=== PATIENT | female | born 1950 | race Caucasian/White ===

== ENCOUNTER → 2016-10-07 | Outpatient (REF) | payer MEDICARE, BC ==
[~2016-10-07] MED LIST: ALBU17IN INH; ALLO10TA PO; ANAS1TAB PO; CRAN500C2 PO; FLON1SPR; FOLI1TAB2 PO; MAG400TA PO; MAXZTA PO; MEGA1CAP3 PO; MIRA33504 PO; PHILCAP4 PO
[2016-10-07 22:03] LABS: CARCINOEMBRYONIC ANTIGEN 13.9 NG/ML (<2.5)
== END ==
LOC: M LAB REF 16:58
PROVIDERS: ATTEND Internal Medicine Medical Oncology
DX: C50.919 Malignant neoplasm of unspecified site of unspecified female breast (principal)

== ENCOUNTER → 2016-10-14 | Outpatient (REF) | payer MEDICARE, BC | LOC: M LAB REF 12:54 | PROVIDERS: ATTEND Internal Medicine Medical Oncology | DX: C50.919 Malignant neoplasm of unspecified site of unspecified female breast (principal) ==

== ENCOUNTER → 2016-11-04 | Outpatient (REF) | payer MEDICARE, BC ==
[2016-11-04 20:36] LABS: INR 0.94
== END ==
LOC: M LAB REF 16:36
PROVIDERS: ATTEND Internal Medicine Medical Oncology
DX: C50.919 Malignant neoplasm of unspecified site of unspecified female breast (principal)

== ENCOUNTER → 2016-11-06 | Outpatient (CLI) | payer MEDICARE, BC ==
[~2016-11-06] MED LIST changes: +LIDOCAINE W/EPINEPHRINE 1% 20ML VIAL As Ordered ONE; +SODIUM BICARBONATE 8.4% INJ 50MEQ 50 ML VIAL As Ordered ONE; +ceFAZolin 1GM INJ (J0690) As Ordered ONE; +fentaNYL 100 MCG/2 ML INJECTION (J3010) As Ordered ONE
--- NOTE | 2016-11-06 16:10 | REPKIM ---
CLINICAL HISTORY: Left breast ca with mets. The referring service has asked a chest [id number] placement for chemotherapy. PROCEDURE PERFORMED: Placement of totally implantable venous access device under combined sonographic and fluoroscopic guidance INTERVENTIONALIST: Caryn Bingham MD CONSENT: The risks, benefits and alternatives to the procedure were explained to the patient and informed written consent was obtained. MEDICATIONS: Local Lidocaine, Ancef 1gm IV and Fentanyl 25 mcg IV. Independent trained observer was present during the entire duration IV medications for monitoring. EBL: 5 mL FLUORO TIME: 0.5 minutes DEVICE USED: [place] 8-[place], Single-Lumen Lot#[id number] PROCEDURE/FINDINGS: The patient was brought to the interventional radiology suite and was positioned supine on the table. Time out procedure was performed. Real time ultrasound was used and permanent image stored. The right IJ vein is patent and compressible. Using ultrasound guidance the internal jugular vein was accessed with a micropuncture needle, after infiltration of the skin and deep tissues with local anesthetic. A peel-away sheath was placed. The catheter tip was inserted via the sheath under controlled respiration. The sheath was removed, and the catheter was flushed with heparinized saline and clamped. Next attention was turned to creation of a subcutaneous pocket for the port along the upper chest. The overlying skin and deep tissues were infiltrated with local anesthetic. A transverse skin incision was made long enough to accommodate the reservoir, and using blunt dissection a subcutaneous pocket was created. A tunnel was created from the pocket to the access site. A clamp was advanced from the pocket incision to the venous access site and used to grasp the free end of the catheter and pull it through to the pocket incision. The catheter was trimmed, attached to the reservoir, and flushed with heparinized saline. The reservoir was inserted into the pocket and secured with 2-0 absorbable sutures. The deep tissue was closed with interrupted 2-0 Vicryl suture. The skin incision was closed with a running subcuticular suture of 4-0 Vicryl. The venotomy incision was closed with 4-0 Vicryl suture. Mastisol and Steri-Strips were applied. The port was then accessed and Heparin (100 units/mL concentration) locked in the port. A sterile dressing was then applied. Post procedure chest spot film radiograph showed the tip of the catheter is at the cavoatrial junction. The patient tolerated the procedure well with no immediate complications. This procedure was performed using ultrasound and fluoroscopy. Dr. Bingahm was present. IMPRESSION: 1. The right IJ vein is patent and compressible. 2. Successful placement of right IJ chest port placement as discussed above. The chest [id number] is ready for use. cc: Kelly Drummond MD MTDKehinde
== END | disposition home or self-care (01) ==
LOC: M IRPRO 12:12
PROVIDERS: ATTEND Internal Medicine Medical Oncology
DX: C50.912 Malignant neoplasm of unspecified site of left female breast (principal); C79.9 Secondary malignant neoplasm of unspecified site
CPT/HCPCS: 36561; 76937; 77001; C1788; C1894; J0690; J3010

== ENCOUNTER → 2016-12-02 | Outpatient (REF) | payer MEDICARE, BC ==
[~2016-12-02] MED LIST changes: -LIDOCAINE W/EPINEPHRINE 1% 20ML VIAL As Ordered ONE; -SODIUM BICARBONATE 8.4% INJ 50MEQ 50 ML VIAL As Ordered ONE; -ceFAZolin 1GM INJ (J0690) As Ordered ONE; -fentaNYL 100 MCG/2 ML INJECTION (J3010) As Ordered ONE
== END ==
LOC: M LAB REF 16:38
PROVIDERS: ATTEND Internal Medicine Medical Oncology
DX: C50.919 Malignant neoplasm of unspecified site of unspecified female breast (principal)

== ENCOUNTER → 2017-01-13 | Outpatient (REF) | payer MEDICARE, BC | LOC: M LAB REF 16:45 | PROVIDERS: ATTEND Internal Medicine Medical Oncology | DX: C50.919 Malignant neoplasm of unspecified site of unspecified female breast (principal) ==

== ENCOUNTER → 2017-02-04 | Outpatient (REF) | payer MEDICARE, BC | LOC: M LAB REF 16:26 | PROVIDERS: ATTEND Internal Medicine Medical Oncology | DX: C50.919 Malignant neoplasm of unspecified site of unspecified female breast (principal) ==

== ENCOUNTER → 2017-02-18 | Outpatient (REF) | payer MEDICARE, BC | LOC: M LAB REF 16:29 | PROVIDERS: ATTEND Internal Medicine Medical Oncology | DX: C50.919 Malignant neoplasm of unspecified site of unspecified female breast (principal); Z79.899 Other long term (current) drug therapy ==

== ENCOUNTER → 2017-03-04 | Outpatient (REF) | payer MEDICARE, BC | LOC: M LAB REF 17:05 | PROVIDERS: ATTEND Internal Medicine Medical Oncology | DX: C50.919 Malignant neoplasm of unspecified site of unspecified female breast (principal) ==

== ENCOUNTER → 2017-03-18 | Outpatient (REF) | payer MEDICARE, BC | LOC: M LAB REF 17:37 | PROVIDERS: ATTEND Internal Medicine Medical Oncology | DX: C50.919 Malignant neoplasm of unspecified site of unspecified female breast (principal) ==

== ENCOUNTER → 2017-04-15 | Outpatient (REF) | payer MEDICARE, BC ==
[~2017-04-15] MED LIST changes: +ASPI1TAB PO; -FOLI1TAB2 PO; +FOLI1TAB4 PO; +LACT10SO29 PO; +LACT10SO3 PO; +MAGN400T5 PO; +XELO150T PO; +ZYRT10CA PO; +[UNRECOGNIZED DRUG - CODE] PO
== END ==
LOC: M LAB REF 16:25
PROVIDERS: ATTEND Internal Medicine Medical Oncology
DX: C50.919 Malignant neoplasm of unspecified site of unspecified female breast (principal); Z79.899 Other long term (current) drug therapy

== ENCOUNTER 2017-05-05 21:52 | Emergency (ER) | payer MEDICARE, BC ==
[~2017-05-05] VITALS: Ht 167.6 cm; Wt 109.0 kg
[~2017-05-05 21:52] MED LIST changes: -ASPI1TAB PO; -LACT10SO29 PO; -LACT10SO3 PO; -MAGN400T5 PO; -XELO150T PO; -ZYRT10CA PO; -[UNRECOGNIZED DRUG - CODE] PO
[2017-05-05] MEDS ORDERED: MAXZTA PO (22:34)
[2017-05-05] MEDS ORDERED: ASPI1TAB PO (22:34)
[2017-05-05] MEDS ORDERED: ZYRT10CA PO (22:34)
--- NOTE | 2017-05-05 23:30 | REPUSA ---
CLINICAL HISTORY: Altered level of consciousness. COMPARISON: March 07, 2016. TECHNIQUE: Head CT without contrast. Total DLP 895.5 mGy*cm Brain: There is mild parenchymal atrophy. There is periventricular white matter low attenuation consi stent with small vessel ischemic change. Chronic basal ganglia calcifications. No intracranial hemorr leodan, hydrocephalus, acute parenchymal edema or evident mass. Calvarium: Unremarkable. Sinuses (partially visualized): Clear. IMPRESSION: Chronic changes of small vessel ischemic disease, without intracranial hemorrhage.
[2017-05-05 23:40] LABS: BASO # 0.1 K/mm3 (0.0-0.2); BASO % 0.5 % (0.0-1.0); EOS # 0.1 K/mm3 (0.0-0.50); EOS % 0.9 % (0.0-3.0); LARGE UNSTAINED CELL # 0.2 K/mm3 (0.0-0.4); LYMPH # 2.3 K/mm3 (1.5-4.5); LYMPH % 14.6 % (24.0-44.0); MEAN CORPUSCULAR HEMOGLOBIN 26.3 pg (27.0-33.0); MEAN CORPUSCULAR HGB CONC 33.7 g/dl (32.0-36.5); MONO # 1.1 K/mm3 (0.0-0.8); MONO % 7.5 % (0.0-5.0); NEUTROPHILS # 11.3 K/mm3 (1.8-7.7); NEUTROPHILS % 75.6 % (36.0-66.0); PLATELET COUNT, AUTOMATED 196 k/mm3 (150-450); RED CELL DISTRIBUTION WIDTH 14.9 % (11.5-14.5); WHITE BLOOD COUNT 14.9 K/mm3 (4.0-10.0)
[2017-05-06 00:03] LABS: ALBUMIN 3.1 GM/DL (3.2-5.2); ALBUMIN/GLOBULIN RATIO 0.97 (1.00-1.93); BILIRUBIN,DIRECT 1.5 MG/DL (0.0-0.2); BILIRUBIN,TOTAL 2.4 MG/DL (0.2-1.0); CREATININE FOR GFR 1.23 MG/DL (0.55-1.02); GLOMERULAR FILTRATION RATE 46.6 (>45); POTASSIUM SERUM 3.8 MEQ/L (3.5-5.1); TOTAL PROTEIN 6.3 GM/DL (6.4-8.2)
[2017-05-06] MEDS ORDERED: LACTULOSE 20 GM/30 ML SYRUP UD PO ONE (00:30)
[2017-05-06] MEDS ORDERED: NS 500 ML IV ONE (02:45)
[2017-05-06] MEDS ORDERED: LACT10SO29 PO (03:29)
[2017-05-06 03:37] VITALS: BP 170/89
[2017-05-06] MEDS ORDERED: [UNRECOGNIZED DRUG - CODE] PO (15:18)
[2017-05-06] MEDS ORDERED: XELO150T PO (15:18)
[2017-05-06] MEDS ORDERED: LACT10SO3 PO (15:18)
[2017-05-06] MEDS ORDERED: MAGN400T5 PO (15:18)
== END 2017-05-06 03:58 | disposition home or self-care (01) ==
LOC: M ED 21:52
DX: E72.20 Disorder of urea cycle metabolism, unspecified (principal); R74.0 Nonspecific elevation of levels of transaminase and lactic acid dehydrogenase [LDH]; E86.0 Dehydration; Z85.3 Personal history of malignant neoplasm of breast; I10 Essential (primary) hypertension; Z79.82 Long term (current) use of aspirin; Z79.899 Other long term (current) drug therapy; Z88.8 Allergy status to other drugs, medicaments and biological substances

== ENCOUNTER 2017-05-06 11:15 | Inpatient (IN) | payer MEDICARE, BC ==
[~2017-05-06 11:15] MED LIST changes: -LACT10SO3 PO; -MAGN400T5 PO; -XELO150T PO; -[UNRECOGNIZED DRUG - CODE] PO
[2017-05-06 14:45] VITALS: BP 159/83
[2017-05-06] MEDS ORDERED: ONDANSETRON 4MG/2ML VIAL (J2405) IV PRN (15:15)
[2017-05-06] MEDS ORDERED: [UNRECOGNIZED DRUG - CODE] PO (15:18)
[2017-05-06] MEDS ORDERED: LACT10SO3 PO (15:18)
[2017-05-06] MEDS ORDERED: XELO150T PO (15:18)
[2017-05-06] MEDS ORDERED: MAGN400T5 PO (15:18)
[2017-05-06] MEDS ORDERED: ALBUTEROL 90 MCG/ACT 8GM HFA INHALER INH PRN (15:30)
[2017-05-06] MEDS ORDERED: FLUTICASONE PROP 0.05% NASAL SPRAY 16 GM (FLONASE) PRN (15:30)
[2017-05-06] MEDS ORDERED: hydrALAZINE INJ 20 MG/ML VIAL IV PRN (15:45)
[2017-05-06 16:00] VITALS: BP 147/66
[2017-05-06] MEDS: LACTULOSE 20 GM/30 ML SYRUP UD PO SCH (16:52)
[2017-05-06] MEDS: ASPIRIN 81 MG ENTERIC TAB PO SCH (16:52)
[2017-05-06] MEDS: HEPARIN SOD (PORCINE) 5000 UNITS/ML VIAL SC SCH ×2 (16:52→20:50)
[2017-05-06] MEDS: NS 1,000 ML IV SCH (16:53)
[2017-05-06 16:56] LABS: BASO # 0.1 K/mm3 (0.0-0.2); BASO % 0.5 % (0.0-1.0); EOS # 0.2 K/mm3 (0.0-0.50); EOS % 1.3 % (0.0-3.0); LARGE UNSTAINED CELL # 0.2 K/mm3 (0.0-0.4); LARGE UNSTAINED CELL % 1.3 % (0.0-4.0); LYMPH # 2.3 K/mm3 (1.5-4.5); LYMPH % 16.7 % (24.0-44.0); MEAN CORPUSCULAR HEMOGLOBIN 26.4 pg (27.0-33.0); MEAN CORPUSCULAR HGB CONC 34.3 g/dl (32.0-36.5); MEAN CORPUSCULAR VOLUME 76.9 fl (80.0-96.0); MONO # 0.9 K/mm3 (0.0-0.8); NEUTROPHILS # 9.4 K/mm3 (1.8-7.7); NEUTROPHILS % 73.3 % (36.0-66.0); PLATELET COUNT, AUTOMATED 208 k/mm3 (150-450); WHITE BLOOD COUNT 12.9 K/mm3 (4.0-10.0)
[2017-05-06 17:04] LABS: INR 1.12
--- NOTE | 2017-05-06 17:40 | REP ---
HISTORY: Elevated transaminases and confusion. COMPARISON: 04/21/2017 A small amount of ascites has developed since the last exam. There is fluid in the pericolic gutters, left greater than right along with fluid trapped in the leads of the small bowel mesentery in the pelvis. Once again, note is made of a micronodular surface to the liver with an abnormal caudate to left lobe ratio favoring the left lobe. The lack of intravenous contrast decreases the sensitivity of evaluating the liver. Focal areas of low density are suspected, but unchanged from the prior exam. There is a small amount of pericholecystic fluid representing a change from the prior exam. The pancreas, adrenal glands and kidneys are essentially unchanged. Small nonobstructing nephroliths are again noted, status quo. There is no significant change in the appearance of the abdominal aorta or periaortic regions. There is no significant change in the appearance of the bowel loops. There is no evidence of an intraabdominal or intrapelvic mass aside from the liver findings. Bone window technique throughout the abdomen and pelvis shows scattered blastic metastases, the appearance of which is stable from the prior exam. IMPRESSION: 1. Cirrhosis of the liver with ascites and other related findings as described above. 2. Hepatic neoplasm cannot be ruled out by this exam. 3. Unchanged nonobstructing bilateral nephroliths. 4. Skeletal blastic metastases is suspected and unchanged from the prior exam. 5. Other findings as described above. Signed by Bud Hale DO 05/07/2017 10:41 A
[2017-05-06] MEDS ORDERED: LACTULOSE 20 GM/30 ML SYRUP UD PO SCH (18:00)
[2017-05-06 18:03] LABS: ALBUMIN/GLOBULIN RATIO 1.07 (1.00-1.93); BILIRUBIN,TOTAL 2.7 MG/DL (0.2-1.0); CALCIUM LEVEL 9.1 MG/DL (8.8-10.2); CREATININE FOR GFR 1.17 MG/DL (0.55-1.02); GLOMERULAR FILTRATION RATE 49.4 (>45); POTASSIUM SERUM 3.9 MEQ/L (3.5-5.1); TOTAL PROTEIN 5.8 GM/DL (6.4-8.2)
[2017-05-06 20:00] VITALS: BP 137/83
[2017-05-06 23:59] VITALS: BP 171/83
[2017-05-07] MEDS: LACTULOSE 20 GM/30 ML SYRUP UD PO SCH ×4 (00:31→14:47)
[2017-05-07 04:00] VITALS: BP 165/82
[2017-05-07] MEDS: HEPARIN SOD (PORCINE) 5000 UNITS/ML VIAL SC SCH ×3 (05:43→21:00)
[2017-05-07 06:22] LABS: MEAN CORPUSCULAR HEMOGLOBIN 25.9 pg (27.0-33.0); MEAN CORPUSCULAR HGB CONC 33.2 g/dl (32.0-36.5); MEAN CORPUSCULAR VOLUME 77.9 fl (80.0-96.0); RED CELL DISTRIBUTION WIDTH 15.1 % (11.5-14.5); WHITE BLOOD COUNT 12.4 K/mm3 (4.0-10.0)
[2017-05-07 06:58] LABS: ALBUMIN 2.9 GM/DL (3.2-5.2); ALBUMIN/GLOBULIN RATIO 1.07 (1.00-1.93); BILIRUBIN,TOTAL 2.9 MG/DL (0.2-1.0); CALCIUM LEVEL 8.7 MG/DL (8.8-10.2); CREATININE FOR GFR 1.17 MG/DL (0.55-1.02); GLOMERULAR FILTRATION RATE 49.4 (>45); POTASSIUM SERUM 3.5 MEQ/L (3.5-5.1); THYROXINE (T4) 9.4 UG/DL (4.5-12.0); TOTAL PROTEIN 5.6 GM/DL (6.4-8.2)
[2017-05-07 08:00] VITALS: BP 147/96
[2017-05-07] MEDS ORDERED: GASTROGRAFIN SOLUTION 30ML PO ONE (08:15)
[2017-05-07] MEDS ORDERED: GASTROGRAFIN SOLUTION 30ML (Q9963) PO ONE (08:45)
--- NOTE | 2017-05-07 09:09 | REP ---
Hepatic ultrasound: 05/07/2017. Clinical history: Elevated liver function tests and bilirubin. Comparison: Noncontrast CT 05/06/2017, abdomen and pelvis with contrast 04/21/2017 from [facility], PET/CT 10/02/2016 from [facility] in [place], [place]. As on yesterday's CT of the liver is extremely lobulated with an enlarged left hepatic lobe. Prior contrast CT last month is heterogeneous in echotexture with numerous hepatic lesions most consistent with metastatic disease. The gallbladder is partially contracted although the patient has been nothing by mouth since last evening. No visible calcified stones with shadowing. Bile ducts could not be visualized, the common duct is not seen. Pancreas is limited due to bowel gas. Just a small amount of ascites inferior to the margin of the liver. The right kidney is 10.3 x 5.2 x 4.5 cm without mass, stone or hydronephrosis. Impression: 1. Enlarged left lobe with extremely lobulated heterogeneous liver with diffuse lesions throughout and little or no normal liver tissue visible. This is highly suggestive of diffuse metastatic disease. 2. Trace amount of ascites inferior to the liver. No intrahepatic biliary dilatation visible. The common duct cannot be identified clearly. 3. The gallbladder is partially contracted. No echogenic shadowing stones visible, the patient was nothing by mouth for appropriate length of time. 4. Right kidney without mass, hydronephrosis or stone. Pancreas largely obscured by gas shadowing. Signed by Rich Gonzalez MD 05/07/2017 06:25 P
--- NOTE | 2017-05-07 09:34 | HPE ---
DATE OF ADMISSION: 05/06/2017 CHIEF COMPLAINT: 66-year-old female brought in by family member due to confusion and poor appetite. HISTORY OF PRESENT ILLNESS: This is a pleasant 66-year-old female with a significant past medical history or breast cancer with metastases to the liver and bone, follows up with Dr. Kelly Drummond for oncology with comorbidities of hypertension, who had progressive worsening confusion for the past 5 days along with poor appetite. The patient was seen by her primary care physician yesterday and was evaluated in the emergency room yesterday as well. Noted to have elevated ammonia and was started on Lactulose, suspected of hepatic encephalopathy. The patient continued to have poor appetite along with weakness, therefore the patient is being directly admitted to the hospital under recommendation of Dr. Drummond under the hospitalist service. As per endorsement, Dr. Kelly Drummond recommended lactulose with further evaluation with a CT of the abdomen. Today's laboratories showed renal dysfunction, therefore CT of the abdomen will be done without contrast. As to note, the patient was on multiple medications in the past for this metastatic ER and ME positive breast cancer with everolimus/Faslodex. She initially had a major response to palbociclib/letrozole followed by fairly dramatic liver progression and she was also given Paxil, which she developed severe reaction more like hand and foot syndrome and that was stopped. Subsequently, everolimus and Faslodex were initiated. As per family member, the patient currently had chemotherapy, last done had been this past Thursday and is currently on Xeloda. The patient seems to be resting comfortably in the progressive care unit (PCU). She does have intermittent confusion. She did get confused with the date and year but is aware of the current president and recognized without difficulty and is aware of her location. Denies any acute complaints at this time. Cooperates with physical examination without difficulty. REVIEW OF SYSTEMS: Ten-point review of systems is negative other than those described in history of present illness. PAST MEDICAL HISTORY: Significant for: 1. Breast cancer with metastases to the bone and liver. 2. Hypertension. SURGICAL HISTORY: None. As per , the patient's disease progressed to metastases and therefore no mastectomy was performed and the patient does not have any surgical history in the past. SOCIAL HISTORY: The patient denies smoking, drinking or drug abuse. FAMILY MEDICAL HISTORY: Mother had leukemia and sister had breast cancer. ALLERGIES: The patient is allergic to ETHANOL, PAXIL, POLYOXYETHYLATED CASTOR OIL. MEDICATIONS: From home: - albuterol two puffs every 4 hours as needed - aspirin 81 mg daily - Xeloda 150 mg by mouth twice a day - Zyrtec 10 mg by mouth daily - cranberry 500 mg by mouth daily - Flonase one spray daily as needed for allergies - lactulose 30 mg by mouth twice a day - magnesium oxide 400 mg by mouth daily - omega one capsule by mouth daily - [employer] one capsule daily - potassium bicarbonate 25 mEq by mouth twice a day - triamterene/hydrochlorothiazide 75/50 mg one tablet each daily PHYSICAL EXAMINATION: VITAL SIGNS: Temperature 98.6, heart rate of 87, respiratory rate 18, blood pressure 159/83, saturating 98% on room air. HEENT: Normocephalic. No trauma. Inspection of the eyes, nose and throat normal. Pupils equal, round, and reactive to light and accommodation. Mucous is moist. Neck is supple. No tracheal deviation. CARDIOVASCULAR: S1, S2. Regular rate and rhythm. Pulses present. LUNGS: Equal air entry. Did not hear any wheezes, rales or rhonchi. EXTREMITIES: Lower extremities with no significant pitting edema noted. NEUROLOGIC: The patient is currently awake, not fully oriented but awake and alert. Pleasant, jovial. at the bedside. Cranial nerves grossly intact. Motor and sensory intact. Normal mood and affect for current situation. DIAGNOSTIC STUDIES: The patient did have lab work done earlier today. It seems that her sodium is 128, potassium 4.22, chloride is 95.1, CO2 is 24.9, calcium is 7.7, AST and ALT is 562 and 147, alkaline phosphatase is 266, glucose is 126, BUN is 17, total bilirubin 3.6, total protein 6.8, albumin is 3.7, creatinine is 1.31, WBC is 4.5, hemoglobin and hematocrit is within normal, platelet count is within normal as well. Ammonia level today is 155, I will cancel the repeat ammonia level for today. She had a UA with no urinary tract infection (UTI), but did show trace ketones and small amorphous sediment. The patient also had a CT of the head yesterday, which showed chronic changes of small vessel ischemic disease without intracranial hemorrhage. ASSESSMENT AND PLAN: This is a 66-year-old pleasant female with a significant past medical history of breast cancer with metastases to the liver and bone, followed by Dr. Drummond with comorbidities of hypertension, who presented complaining of confusion and poor appetite. 1. Hepatic encephalopathy. Patient to receive lactulose. CT of the abdomen and pelvis examination for further assessment, as per recommendation by Dr. Kelly Drummond. Gentle IV hydration and electrolyte monitoring. Supplementation as needed. We also obtained UA due to leukocytosis, but did not show any infectious process at this time. Continue to clinically monitor. We will defer reinitiation of cancer medications to Dr. Kelly Drummond. Further recommendations and evaluation by Dr. Drummond is greatly appreciated. 2. Hypernatremia. Most likely due to poor appetite and diuretics. We will obtain urine osmolality and serum osmolality as well and provide her with gentle IV fluids. Hold triamterene/hydrochlorothiazide at this time. 3. Renal dysfunction. Gentle IV fluids and continue to monitor. 4. Hypertension. We will hold triamterene and hydrochlorothiazide at this time and utilize hydralazine as needed for hypertension. 5. Resume aspirin. 6. Deep vein thrombosis (DVT) prophylaxis.
[2017-05-07] MEDS ORDERED: ISOVUE-370 76% 100ML VIAL (Q9967) As Ordered ONE (09:52)
[2017-05-07] MEDS: ASPIRIN 81 MG ENTERIC TAB PO SCH (10:42)
[2017-05-07] MEDS: CETIRIZINE (ZyrTEC) 10 MG TAB PO SCH (10:42)
--- NOTE | 2017-05-07 10:57 | CR ---
MEDICAL ONCOLOGY INPATIENT CONSULT: DATE OF SERVICE: 05/06/2017 REFERRING PHYSICIAN: Dr. Ansley Goodwin and Dr. Geraldine Feliciano requested medical oncology consult for Debbie Serna. The patient is a 66-year-old woman with a diagnosis of metastatic ER/AK positive , HER2 negative breast carcinoma who presented in March 2016 with a neglected left breast mass, left axillary adenopathy, widespread bony metastases, liver metastases, hypocalcemia, nausea, vomiting and malaise. Liver biopsy confirmed the diagnosis. She was started on letrozole/palbociclib and the zoledronic acid and had a major response with normalization of her tumor marker, shrinkage of her liver metastases, resolution of hypercalcemia. Her ECOG performance status is improved to the point of normal daily functioning; her left breast mass essentially completely resolved. She was treated with that first line therapy between March and October 2015 when she developed new hypercalcemia evidence for progression in the liver and bones. She was switched to weekly paclitaxel October through January 2017 highly effective with reduction of her tumor marker and liver metastatic foci but was intolerant to drug due to severe rash involving her arms. She was then started on fulvestrant (intramuscular anti-estrogen) and everolimus (M2 inhibitor) and continued zoledronic acid and has been on this since February 2017. However, in the last few weeks, her tumor marker began to rise and in the last few days she presented with malaise, nausea, vomiting was found to have significant transaminitis with AST, ALT in the 300s, and elevated ammonia. She was referred by her primary care physician to the emergency room early in the morning today where she was treated with lactulose, labs showed AST , ALT 755 and 195 respectively, alk phos 326, albumin 3.1, creatinine 1.23. Notably, she has had normal platelets, hemoglobin and hematocrit with leukocytosis. She was treated with lactulose in the emergency room based on a lab performed outpatient and discharged home. However, she immediately called her primary care doctor not tolerating being at home and came into my office this afternoon where she was wheelchair bound, exhausted, ammonia level was 155, amylase 14, PT/PTT normal. Lipase normal. WBC 14, hemoglobin/hematocrit, platelets normal. Sodium 128, AST 147, AST 562, alk phos 266, BUN 17, creatinine 1.31 and total bili 3.6. On admission today, abdomen and pelvis CT has been performed. Report in draft form indicates liver cirrhosis with ascites, hepatic neoplasm not ruled out (it is a noncontrast study) unchanged skeletal metastases. The comparison was made to the 04/21/2017 film at [facility]. Unfortunately without contrast, it is difficult to compare the size of multiple liver metastases. What emerges over many scans is a nodular appearance to the liver consistent with cirrhosis. At the bedside Debbie is calm of clear sensorium. We discussed her overall condition, the possible causes of her acute hepatitis. She is not visibly jaundiced. If her cancer is progressing in the liver causing a functional obstruction, it will be difficult to continue systemic treatment. We discussed the possibility of hospice care. In general metastatic ER positive breast cancer is highly treatable long-term condition; the difference in Debbie's case is extensive liver metastases in the setting of what is likely underlying cirrhosis. 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 She acknowledges/denied a past history of alcohol abuse but has never in the past been diagnosed with cirrhosis formally. Debbie was on the brink of starting a new chemotherapy based on her rising tumor markers, that was capecitabine and oral 5-FU (antimetabolite), which should be dose reduced in the setting of Child's A or B cirrhosis. If she is in acute metabolic disarray, which can be resolved with lactulose and hydration and an appropriate diuresis for hepatic ascites, she may still be a candidate to start modified dose single agent chemotherapy. If however, liver function continues to deteriorate, hospice care should be considered. IMPRESSION: Metastatic ER/AK positive, HER2 negative breast cancer with stable skeletal metastases, possible progression in the liver versus liver toxicity, possibly due to intercurrent alcohol intake versus effects of everolimus and fulvestrant (Faslodex). Hepatic encephalopathy with persistent hyperammonemia but improved sensorium. RECOMMENDATIONS: 1. I discussed the case with Dr. Ansley herrera and he will address the issue of whether a GI procedure would be of any diagnostic or palliative therapeutic use for this patient. I strongly suggest following up tomorrow's bilirubin. If significantly higher and the patient becomes clinically jaundiced, it may indicate either progression of her underlying cirrhosis versus a possible obstructing lesion. Without contrast, it is difficult to tell on CT and MRI may need to be obtained. 2. At the patient's behest, I will contact her [facility] Oncologist, Nga García MD, to assess whether a hospital transfer is feasible. I explained to Debbie this is often a complex undertaking and make sense only if there is treatment that can be given based on her ongoing conditions. It would also require Dr. García accepting the patient. I will pursue this in the morning. 3. Continue hydration, as needed diuresis for accumulating for any clinically overt abdominal ascites, lactulose to normalize ammonia. 4. For the present, the patient is off active treatment. Her last fulvestrant was 04/30/2017, her last everolimus also that date. I will follow daily. Clinical deterioration in Debbie needs to prompt early active discussion of hospice. We started this discussion tonight. TAWYN
--- NOTE | 2017-05-07 11:32 | REP ---
CT ABDOMEN PELVIS WITH CONTRAST: 05/07/2017 CLINICAL HISTORY: Elevated liver enzymes and bilirubin. Known breast cancer with metastatic liver disease. COMPARISON: Hepatic ultrasound today, noncontrast CT 05/06/2017, CT abdomen pelvis at [facility] 04/21/2017. TECHNIQUE: Oral Gastrografin mixture 10 mL in 290 mL of flavored water for two doses per our bowel contrast protocol. Scanning through the abdomen followed by bolus of 100 mL of Isovue 370. Delayed scan through the liver. Coronal and sagittal reconstructions of the abdomen pelvis also provided. FINDINGS: Lung bases showed no effusion, infiltrate, nodule or mass. Minor dependent atelectatic change deep sulcus right lower lobe. No pericardial thickening or effusion and no hiatal hernia. Liver shows lobulated contours enlarged left lobe and diffuse heterogeneous pattern with innumerable nodules of metastatic lesions. These are best seen on the contrast study. There is a small amount of ascites adjacent to the liver, increased from the 04/21/2017 exam. Ascites about the spleen as well. There is no splenomegaly. The left hepatic lobe is enlarged. Overall the liver is not enlarged. Gallbladder is partially contracted. No calcified stone is seen within it. The pancreas shows no mass, ductal dilatation, adjacent fluid or adenopathy. Adrenal glands are normal. Kidneys show function without obstruction, mass or stone. Stomach collapsed with small amounts of oral contrast and no hiatal hernia. Small bowel loops not abnormally dilated. There is no mesenteric edema or adenopathy. No ventral hernia. The colon shows scattered diverticulosis on the left without colitis or diverticulitis evident. There is ascites in the peroneal gutters near to the pelvis. The aorta is without aneurysm or dissection. No periaortic or other retroperitoneal/mesenteric lymphadenopathy. The bone windows show advanced degenerative disc changes throughout the lumbar spine with vacuum phenomenon. There is a sclerotic focus inferior aspect of the T11 inferiorly posteriorly in the superior aspect of T10 and inferior aspect of T9 suggesting sclerotic metastatic lesions. Discogenic endplate changes in the lumbar spine. Visualized ribs show no focal lesion. CT PELVIS: There are sclerotic lesions in the sacrum, left larger than right, iliac bones, right more than left , with superior acetabulum on the right and a few small scattered sclerotic foci in the hips and inferior pubic rami, left greater than right. Fluid in the pelvis in the peroneal gutters with a small amount of ascites. Bladder not filled. The distal small bowel loops are grossly intact. Distal left colon and sigmoid with diverticulosis but no diverticulitis. Oral contrast reaches the rectum. No inflammatory changes about the cecum. I do not see the appendix. No ventral or inguinal hernia nor inguinal adenopathy. IMPRESSION: 1. Lobulated liver with diffuse infiltrate and metastatic disease throughout enlarging left lobe contributing to some diffuse mild ascites, which has increased since the mid April CT at the outside facility. No biliary dilatation. 2. Gallbladder contracted without calcified stone, and the pancreas, adrenal glands and kidneys without acute finding. 3. Metastatic lesions in the sacrum, pelvis, hips and some of the thoracic vertebral bodies as described. There are smaller sclerotic foci also suggested in the lumbar vertebral bodies but discogenic changes partially obscure these. Signed by Rich Gonzalez MD 05/07/2017 06:29 P
[2017-05-07 12:00] VITALS: BP 168/98
[2017-05-07] MEDS ORDERED: SODIUM CHLORIDE 0.9% INJ 10 ML SYR IV PRN (12:00)
[2017-05-07] MEDS: predniSONE 20 MG TAB PO SCH (12:18)
[2017-05-07] MEDS: NS 1,000 ML IV SCH ×2 (12:19→20:57)
[2017-05-07 20:00] VITALS: BP 145/106
--- NOTE | 2017-05-07 21:56 | IPN ---
DATE: 05/07/2017 Patient is seen and examined. No acute events overnight. Denies any chest pain, pressure or discomfort, shortness of breath. Making bowel movements with lactulose. Denies any fever or chills. VITAL SIGNS: Temperature 97.6, pulse 88, respirations 18, blood pressure 168/98, pulse oximetry 94% on room air. LABORATORY DATA: WBC 12.4, hemoglobin and hematocrit 13.3/40.1, platelets 204. Chemistry: Sodium 137, potassium 3.5, chloride 99, bicarbonate 24, BUN 17, creatinine 1.17, ammonia 76. PHYSICAL EXAMINATION: GENERAL: Patient obese, alert and oriented times three, in no acute distress. HEENT: Normocephalic, atraumatic. PULMONARY: Bilaterally clear to auscultation. CARDIAC: Regular rate and rhythm, normal S1, S2. ABDOMEN: Soft, distended. No significant tenderness to palpation. EXTREMITIES: Lower extremity no significant edema noticed. ASSESSMENT AND PLAN: This is a 66-year-old female patient with underlying medical history of breast cancer, metastases to the liver and bones, with hypertension, admitted with hepatic encephalopathy. 1. Hepatic encephalopathy. Patient receiving lactulose. CT of the abdomen appreciated. Ultrasound appreciated. Differential diagnosis includes severe metastatic disease to the liver. Ultrasound demonstrated very little good tissue left for the liver, possibly chemotherapy induced versus obstructive process. Ultrasound shows no biliary dilatation. Case discussed with Dr. Kelly Drummond. IV fluids for gentle hydration. Followup ammonia. Urinalysis has also been obtained. History of alcohol drinking, but as per patient, has not drank for 1-1/2 weeks. Possible etiology alcoholic cirrhosis. Started prednisone for possible empiric treatment after discussing with Dr. Kelly Drummond given patient's advanced cancer, will want to try all possibilities as per Dr. Kelly Drummond. Will defer further cancer management to Dr. Kelly Drummond. 2. Transaminitis with elevated bilirubin and hepatic encephalopathy. Refer to above. IV fluids. Lactulose and prednisone. 3. Mild elevation creatinine. Continue to follow. 4. Hypernatremia. Possibly secondary to dehydration and diuretics. Continue to monitor. Holding blood pressure medication, triamterene and hydrochlorothiazide. 5. Hypertension. Holding triamterene and hydrochlorothiazide. Will monitor blood pressure, adjust medication as needed. Hydralazine as needed. 6. Deep venous thrombosis (DVT) prophylaxis. Heparin subcutaneous. DISPOSITION PLANNING: Pending hematology/oncology consultation. Patient advanced cancer, stage IV disease, poor overall prognosis. Dr. Kelly Drummond will discuss with the patient about hospice later today as per Dr. Kelly Drummond.
[2017-05-07 23:59] VITALS: BP 161/78
[2017-05-08] MEDS: LACTULOSE 20 GM/30 ML SYRUP UD PO SCH ×4 (01:41→17:31)
[2017-05-08 04:00] VITALS: BP 170/91
[2017-05-08] MEDS: NS 1,000 ML IV SCH ×3 (05:31→17:32)
[2017-05-08] MEDS: HEPARIN SOD (PORCINE) 5000 UNITS/ML VIAL SC SCH ×3 (06:03→21:27)
[2017-05-08 06:36] LABS: MEAN CORPUSCULAR HEMOGLOBIN 26.3 pg (27.0-33.0); MEAN CORPUSCULAR HGB CONC 33.3 g/dl (32.0-36.5); MEAN CORPUSCULAR VOLUME 78.9 fl (80.0-96.0); RED CELL DISTRIBUTION WIDTH 15.3 % (11.5-14.5); WHITE BLOOD COUNT 13.2 K/mm3 (4.0-10.0)
[2017-05-08 06:49] LABS: INR 1.14
[2017-05-08 07:07] LABS: ALBUMIN 2.7 GM/DL (3.2-5.2); BILIRUBIN,TOTAL 2.5 MG/DL (0.2-1.0); CALCIUM LEVEL 8.3 MG/DL (8.8-10.2); CREATININE FOR GFR 1.13 MG/DL (0.55-1.02); GLOMERULAR FILTRATION RATE 51.4 (>45); MAGNESIUM LEVEL 2.1 MG/DL (1.8-2.4); POTASSIUM SERUM 3.6 MEQ/L (3.5-5.1); TOTAL PROTEIN 5.4 GM/DL (6.4-8.2)
[2017-05-08 08:00] VITALS: BP 146/78
[2017-05-08] MEDS: SODIUM CHLORIDE 0.9% INJ 10 ML SYR IV SCH (09:00)
[2017-05-08] MEDS: ASPIRIN 81 MG ENTERIC TAB PO SCH (09:12)
[2017-05-08] MEDS: CETIRIZINE (ZyrTEC) 10 MG TAB PO SCH (09:12)
[2017-05-08] MEDS: predniSONE 20 MG TAB PO SCH (09:12)
[2017-05-08 12:00] VITALS: BP 179/88
[2017-05-08 16:00] VITALS: BP 145/70
--- NOTE | 2017-05-08 17:54 | CR ---
DATE OF CONSULTATION: 05/07/2017 FOLLOWUP NOTE Overnight, abdomen and pelvis CT with contrast, and abdominal ultrasound confirm new emergence of [id number] ascites surrounding the liver, and likely progression in the liver comparing similar views to images from early April at [facility]. Though no single dominant lesion can be easily compared because of the extensive involvement of the liver with tumor and the nodularity of the liver due to cirrhosis, there appears to be progression. I discussed the findings with Debbie and Anmol herrera. They have met with one of their sons, talked to their primary care physician, Shanae Westbrook , and Debbie is accepting of a terminal diagnosis at this point. I explained because of the liver failure and hepatitis, we must stop active treatment. She would not reasonably be a candidate for an acute intervention at [facility] [place], for example, and hospital-to- hospital transfer is probably unwise and not even feasible based on her active liver disease now. We talked about hospice care. I discussed advanced directives with Uli. They declined to fill out a Medical Orders for Life-Sustaining Treatment (MOLST) form at the bedside javier. They would like to speak with Dr. Westbrook about specifics of hydration, nutrition and so forth under hospice care. The fear being "locked in" and Debbie does want to be at home. I briefly discussed the impracticability of intravenous (IV) fluids at home, but said this is something she can work out with hospice care. She lives in [facility]. I have Dr. Westbrook's number and can communicate with her regarding who will be the attending physician. I spent about 45 minutes with Uli. We talked over her care, her symptoms. She is most bothered by frequent diarrhea but acknowledges the lactulose has helped her sensorium. It is a balancing act we discussed between keeping the ammonia down and diarrhea. Once her ammonia is lowered, perhaps a lower level of daily lactulose will help control the encephalopathy. She is not in pain. We also discussed letting hepatic encephalopathy overtake her as a gentle demise, as her cancer progresses. She would like to discuss all these things in more detail with her hospice attending once she is under hospice care. IMPRESSION: Metastatic breast cancer with liver and bone involvement, now with progression in the liver causing hepatic insufficiency, new ascites in the setting of underlying likely alcoholic cirrhosis. Debbie would like to opt for home hospice care if possible. She is not currently in pain, but may need management of hyperammonemia due to hepatic failure. PLAN/RECOMMENDATIONS: 1. Home hospice through [facility]. 2. I have sent a message to Dr. Westbrook offering to be the hospice attending or if she prefers, she will be the hospice attending or as she works out with Uli. 3. At the patient's request tonight, she held off defining advance directives but understands fully she has an incurable end-stage disease. She wishes only to not be in pain. I will continue to follow as long as Debbie is here in the hospital at [facility]. TAWNY
--- NOTE | 2017-05-08 19:59 | IPN ---
DATE: 05/08/2017 Patient seen and examined. No acute events overnight. Denies any chest pain, pressure, discomfort, abdominal pain. Currently comfortable, making bowel movements. VITAL SIGNS: Temperature 98.6, pulse 76, respirations 18, blood pressure 145/70, pulse oximetry is 94% on room air. LABORATORY DATA: WBC 13.2, hemoglobin and hematocrit 13 over 39, platelets 193. Chemistry: Sodium 138, potassium 3.6, chloride 102, bicarbonate 23, BUN 15, creatinine 0.13, ammonia 104. PHYSICAL EXAMINATION: GENERAL: Obese, alert and oriented times three, in no acute distress. HEENT: Normocephalic, atraumatic. PULMONARY: Bilaterally clear to auscultation. CARDIAC: Regular rate and rhythm. Normal S1, S2. ABDOMEN: Soft, nondistended. No significant tenderness to palpation. EXTREMITIES: No edema bilateral lower extremities. ASSESSMENT AND PLAN: This is a 66-year-old female patient with underlying medical history of breast cancer, metastasis to the liver and bone with hypertension, admitted with hepatic encephalopathy. Problems: 1. Hepatic encephalopathy. Patient received lactulose. CT of the abdomen appreciated. Ultrasound appreciated. Differential diagnosis includes severe metastatic disease to the liver. Ultrasound demonstrates very little good tissues left in the liver. Possibly also secondary to chemotherapy regimen. Ultrasound does not show any biliary dilatation. Case discussed with Dr. Kelly Drummond. IV fluids for gentle hydration Followup ammonia. Lactulose as ordered. The patient does have a history of alcohol drinking, but has not drank for a week and a half. Empirically started prednisone for alcoholic hepatitis possible treatment. Discussed with the patient, given advanced cancer, failure of treatment, Dr. Kelly Drummond feels that the patient is hospice appropriate. The patient is agreeable to talk to hospice, and as per Dr. Kelly Drummond, Dr. Westbrook agreed to be her palliative care doctor as an outpatient. 2. Transaminitis as well as elevated bilirubin, hepatic encephalitis. Refer to above, IV fluids, lactulose, prednisone. 3. Mild elevation of creatinine. Continue to follow. 4. Hypernatremia, possibly secondary to dehydration. Continue to monitor. Holding blood pressure medication Triamterene and hydrochlorothiazide. Restart as needed. 5. Hypertension. Holding triamterene and hydrochlorothiazide. Will restart once kidney function is better. Hydralazine as needed. 6. Deep vein thrombosis (DVT) prophylaxis. Heparin subcutaneously. DISPOSITION: Likely discharge tomorrow if the patient feels well enough and the family could take care of the patient. Hospice referral to [facility], will followup with patient. Advanced care planning: Discussed with patient and family about what hospice is, why the patient is a candidate for hospice and what hospice can offer. Furthermore, different categories of Medical Orders for Life-Sustaining Treatment (MOLST) form have been discussed with the patient, which include DNR, DNI, comfort measures - patient and family need time to decide and formulate plans. Time spent meeting with the family and discussing with the patient and family: 30 minutes.
[2017-05-08 20:00] VITALS: BP 141/80
[2017-05-09] VITALS: BP 147/83
[2017-05-09] MEDS: LACTULOSE 20 GM/30 ML SYRUP UD PO SCH ×2 (00:48→06:41)
[2017-05-09] MEDS ORDERED: guaiFENesin SYRUP 200 MG/10 ML UDC PO PRN (02:15)
[2017-05-09] MEDS: NS 1,000 ML IV SCH (02:41)
[2017-05-09 04:00] VITALS: BP 171/82
[2017-05-09 04:59] LABS: MEAN CORPUSCULAR HEMOGLOBIN 26.2 pg (27.0-33.0); MEAN CORPUSCULAR VOLUME 79.5 fl (80.0-96.0); RED CELL DISTRIBUTION WIDTH 15.5 % (11.5-14.5); WHITE BLOOD COUNT 16.5 K/mm3 (4.0-10.0)
[2017-05-09 05:07] LABS: INR 1.13
[2017-05-09 05:10] LABS: ALBUMIN 2.8 GM/DL (3.2-5.2); ALBUMIN/GLOBULIN RATIO 0.82 (1.00-1.93); BILIRUBIN,TOTAL 2.7 MG/DL (0.2-1.0); CALCIUM LEVEL 7.6 MG/DL (8.8-10.2); CREATININE FOR GFR 1.11 MG/DL (0.55-1.02); GLOMERULAR FILTRATION RATE 52.5 (>45); MAGNESIUM LEVEL 2.1 MG/DL (1.8-2.4); POTASSIUM SERUM 3.4 MEQ/L (3.5-5.1); TOTAL PROTEIN 6.2 GM/DL (6.4-8.2)
[2017-05-09] MEDS: HEPARIN SOD (PORCINE) 5000 UNITS/ML VIAL SC SCH (06:00)
[2017-05-09 08:00] VITALS: BP 198/91
[2017-05-09] MEDS ORDERED: MAXZIDE 75/50 TABLET PO SCH (09:00)
[2017-05-09] MEDS: SODIUM CHLORIDE 0.9% INJ 10 ML SYR IV SCH ×2 (09:00→10:15)
[2017-05-09] MEDS: CETIRIZINE (ZyrTEC) 10 MG TAB PO SCH (09:07)
[2017-05-09] MEDS: ASPIRIN 81 MG ENTERIC TAB PO SCH (09:07)
[2017-05-09] MEDS ORDERED: LACT10SO3 PO (09:39)
[2017-05-09] MEDS ORDERED: POTASSIUM CHLORIDE 10 MEQ SR TABLET PO ONE (10:00)
--- NOTE | 2017-05-09 15:45 | IPN ---
MEDICAL ONCOLOGY INPATIENT FOLLOWUP DATE OF SERVICE: 05/08/2017 66-year-old woman with metastatic ER positive, WI positive, HER2 negative breast cancer widely involving skeleton, liver, possible pulmonary metastases with progression on third line therapy complicated by underlying liver cirrhosis, now with hepatic encephalopathy and tumor progression on current therapy, now on end of life comfort and hospice care. At the bedside Debbie is calm watching television. She has been visited by several people today and the current plan is for her discharge home tomorrow when her sister will also be available to be of help. Ammonia did go up today 104 on this morning's labs. Creatinine remains stable. AST, ALT remain quite high and progressing slightly 644, 201 respectively, alk phos 312. Debbie denies pain or distress. IMPRESSION: End-stage advanced breast cancer with extensive liver involvement and liver progression causing liver failure and encephalopathy in a patient with underlying alcohol history and cirrhosis. PLAN: Debbie is a DO NOT RESUSCITATE, the plan is for to go on hospice care in [facility] at home under Dr. Shanae Westbrook and discharge is tentatively scheduled for tomorrow. According to the patient I have not yet confirmed this absolutely with the hospitalist service, but the working plan informally discussed as above. Her pain is well under control with no active painful cancerous lesions. Hyperammonemia still persisting despite lactulose. MTDD
--- NOTE | 2017-05-09 18:52 | DSES ---
DATE OF ADMISSION: 05/07/2017 DATE OF DISCHARGE: 05/09/2017 ONCOLOGIST: Dr. Kelly Drummond. PRIMARY CARE PROVIDER: Dr. Westbrook. FINAL DIAGNOSES: 1. Hepatic encephalopathy. 2. Transaminitis with elevated bilirubin secondary to metastatic breast cancer to the liver. 3. Underlying metastatic breast cancer to the bones and to the liver. 4. Mild elevation of creatinine. 5. Hypertension. 6. Obesity. HISTORY OF PRESENT ILLNESS: This is a 66-year-old female patient with underlying medical history of breast cancer with metastasis to the liver and to bone, follows up with Dr. Kelly Drummond for oncology, and with comorbidity of hypertension and had progressive worsening of confusion over the past five days along with poor oral intake. The patient was seen by primary care provider physician, Dr. Westbrook, prior to admission, evaluating it was emergency as well, noted to have elevated ammonia, was started on lactulose, suspected hepatic encephalopathy. The patient continued to have poor oral intake along with weakness. Therefore, the patient is being directly admitted to the hospital, sent in by Dr. Kelly Drummond to the hospitalist service. Dr. Kelly Drummond has recommended increasing lactulose, given CT of the abdomen and pelvis to see the cause of patient's transaminitis, elevated bilirubin and elevated ammonia level, whether it is medication induced versus progression of cancer. HOSPITAL COURSE: Patient was admitted to the hospital. CT of the abdomen was done, along with ultrasound of the abdomen. Oncology has been consulted. Intravenous (IV) fluids. Lactulose has been started. Ultrasound revealed that the patient has very little liver tissue left, but with no biliary ductal dilatation suggestive of an obstructive process. Physical therapy was done. Case was discussed with Dr. Kelly Drummond and the patient. It was determined that, at this point, the patient has exhausted all chemotherapy possibilities and is no longer a candidate for chemotherapy. Recommendation for hospice was made. The patient is agreeable to hospice. Medical Orders for Life-Sustaining Treatment (MOLST) form has been discussed with the patient. Patient and family services (PFS) consulted for arrangement of hospice with [facility]. Dr. Westbrook has agreed to be the patient's palliative care physician, and subsequently the patient is discharged home for further followup with primary care. PHYSICAL EXAMINATION: VITAL SIGNS: Temperature 98.6, pulse 86, respirations 18, blood pressure 198/91, pulse oximetry 95% on room air. GENERAL: Patient comfortable, obese, in no acute distress. HEENT: Normocephalic, atraumatic. PULMONARY: Bilaterally clear to auscultation. CARDIAC: Regular rate and rhythm. Normal S1, S2. ABDOMEN: Soft, nontender. Positive bowel sounds. Distended. EXTREMITIES: No clubbing, cyanosis or edema. LABORATORY DATA: WBC is 16.5, hemoglobin and hematocrit 14.5 over 44.1. Platelets 139. Potassium 3.4, chloride 104, bicarbonate 20, BUN 15, creatinine 1.1. Ammonia level 106. DISCHARGE MEDICATIONS: Home medications were continued. - albuterol every four hours as needed - aspirin 81 mg by mouth daily - Zyrtec 10 mg by mouth daily - cranberry 500 mg by mouth daily - Flonase nasal spray daily as needed - magnesium oxide 400 mg by mouth daily - krill oil capsules one capsule by mouth daily - Drug Response D[employer] one capsule by mouth daily - potassium bicarbonate 20 mEq by mouth twice a day - triamterine hydrochlorothiazide 75/50 mg by mouth daily - lactulose increased to 30 grams by mouth three times a day DISCHARGE INSTRUCTIONS: The patient is instructed to followup with hospice for further care. Return to the hospital if symptoms worsen. MTDD
== END 2017-05-09 11:04 | disposition home or self-care (01) | DRG 441 ==
LOC: INTOOBSV 14:23 → M PCU 14:23 → OBSVTOIN 05-07 11:39
PROVIDERS: ADMIT Internal Medicine; ATTEND Hospitalist
DX: K72.90 Hepatic failure, unspecified without coma (principal); G93.49 Other encephalopathy; C78.7 Secondary malignant neoplasm of liver and intrahepatic bile duct; C79.51 Secondary malignant neoplasm of bone; E87.0 Hyperosmolality and hypernatremia; K70.31 Alcoholic cirrhosis of liver with ascites; C50.919 Malignant neoplasm of unspecified site of unspecified female breast; E66.9 Obesity, unspecified; I10 Essential (primary) hypertension; Z79.899 Other long term (current) drug therapy; Z79.82 Long term (current) use of aspirin; Z88.8 Allergy status to other drugs, medicaments and biological substances; E83.51 Hypocalcemia

== ENCOUNTER → 2017-05-06 | Outpatient (REF) | payer MEDICARE, BC ==
[~2017-05-06] MED LIST changes: +ASPI1TAB PO; +LACT10SO29 PO; +LACT10SO3 PO; +MAGN400T5 PO; +XELO150T PO; +ZYRT10CA PO; +[UNRECOGNIZED DRUG - CODE] PO
[2017-05-06 14:21] LABS: INR 1.05
[2017-05-06 14:23] LABS: AMYLASE 14 U/L (25-115)
== END ==
LOC: M LAB REF 13:47
PROVIDERS: ATTEND Internal Medicine Medical Oncology
DX: C50.919 Malignant neoplasm of unspecified site of unspecified female breast (principal); K74.60 Unspecified cirrhosis of liver